=== PATIENT | male | born 1970 | race Caucasian/White ===

== ENCOUNTER 2018-11-16 12:36 | Observation (INO) | payer OTHER ==
[2018-11-16 14:34] LABS: BASO % 0.5 % (0-2.0); EOS % 2.1 % (0-4.5); HEMATOCRIT 33.7 % (35.4-49); HEMOGLOBIN 11.3 GM/dL (11.7-16.9); LYMPH % 14.9 % (8-40); MCHC 33.5 g/dl (32.0-35.9); MEAN CELL VOLUME 74.7 fl (80-96); MONO % 9.3 % (3.8-10.2); NEUT % 73.2 % (42.8-82.8); PLATELET COUNT 246 K/MM3 (134-434); RBC 4.52 M/mm3 (4.00-5.60); RDW 14.4 % (11.9-15.9); WHITE BLOOD COUNT 7.7 K/mm3 (4.0-10.0)
[2018-11-16 14:58] LABS: INR 1.05 (0.83-1.09); PROTHROMBIN TIME (PATIENT) 12.4 SEC (9.7-13.0)
[2018-11-16 15:00] LABS: ACTIVATED PTT 31.2 SECONDS (25.2-36.5)
[2018-11-16 15:02] LABS: ALBUMIN 2.8 g/dl (3.4-5.0); ALK PHOS 182 U/L (45-117); ANION GAP 8 MMOL/L (8-16); BILIRUBIN,TOTAL 0.3 mg/dL (0.2-1); BLOOD UREA NITROGEN 24 mg/dL (7-18); CALCIUM 8.3 mg/dL (8.5-10.1); CHLORIDE 99 mmol/L (98-107); CO2 28 mmol/L (21-32); CREATININE 1.9 mg/dL (0.55-1.3); N-TERMINAL BNP 457.4 pg/ml (5-125); POTASSIUM 3.4 mmol/L (3.5-5.1); SGOT/AST 25 U/L (15-37); SGPT/ALT 44 U/L (13-61); SODIUM 135 mmol/L (136-145); TOT PROT 7.2 g/dl (6.4-8.2)
--- NOTE | 2018-11-16 15:04 | PDOC ---
History of Present Illness <Gavino Travis - Last Filed: 11/16/18 15:43> - History of Present Illness Initial Comments: 11/16/18 14:57 The patient is a 48 year old male with a significant past medical history of HTN , IDDM, CHF (on lasix 80mg BID), and [place] s/p stent (on brilinta) who presents to the ED complaining of SOB, and 8/10 burning right elbow pain associated with numbness and tingling in his right pinky finger. The patient reports the SOB to be constant which started a week ago. The patient reports some chest tightness as well that is similar to when he had pneumonia last year and a productive cough of green, non bloody sputum. The patient stated he had an echo done within the past month, but the results have not come in yet. The patient states his right elbow pain began a month ago when he had fallen down the stairs. The patient states the pain is exacerbated when lifting objects. He also notes he often hears a popping coming from his right elbow and tingling in his pinky. The patient stated he applied Icy Hot, but it did not alleviate his pain. The pt receives all of his care at [facility], however his had a positive experience here prompting him to come to our ED. The patient denies chest pain, headache, weakness and dizziness. Denies fever, chills, nausea, vomit, diarrhea and constipation. Denies dysuria, frequency, urgency and hematuria. Allergies: Mushrooms, NKA Social history: No reported PCP: Dr. Mazariegos <Robert Orona - Last Filed: 11/16/18 15:48> - General Chief Complaint: Pain, Acute Stated Complaint: Sob / R arm pain Time Seen by Provider: 11/16/18 12:49 Past History <Gavino Travis - Last Filed: 11/16/18 15:43> - Past Medical History COPD: No CHF: Yes Diabetes: Yes HTN: Yes - Surgical History Cardiac Surgery: Yes (stent) Lung Surgery: No Neurologic Surgery: No - Immunization History Immunization Up to Date: No - Suicide/Smoking/Psychosocial Hx Smoking History: Never smoked Have you smoked in the past 12 months: No Information on smoking cessation initiated: No Hx Alcohol Use: No Drug/Substance Use Hx: No <Adwoa,Yoitzel - Last Filed: 11/16/18 15:48> - Past Medical History Allergies/Adverse Reactions: Allergies Allergy/AdvReac Type Severity Reaction Status Date / Time No Known Allergies Allergy Verified 11/16/18 12:49 Home Medications: Ambulatory Orders Hydralazine HCl 100 mg PO ASDIR 11/16/18 Review of Systems - Review of Systems Comments:: 11/16/18 15:04 GENERAL/CONSTITUTIONAL: No fever or chills. No weakness. HEAD, EYES, EARS, NOSE AND THROAT: No change in vision. No ear pain or discharge. No sore throat. GASTROINTESTINAL: No nausea, vomiting, diarrhea or constipation. GENITOURINARY: No dysuria, frequency, or change in urination. CARDIOVASCULAR: No chest pain or shortness of breath. RESPIRATORY:(+) productive cough w/ clear sputum. No wheezing, or hemoptysis. MUSCULOSKELETAL: (+) right elbow pain. No neck or back pain. SKIN: No rash NEUROLOGIC: (+) tingling in right pinky finger. No headache, vertigo, loss of consciousness, or change in strength. ENDOCRINE: No increased thirst. No abnormal weight change. HEMATOLOGIC/LYMPHATIC: No anemia, easy bleeding, or history of blood clots. ALLERGIC/IMMUNOLOGIC: No hives or skin allergy. <Robert Orona - Last Filed: 11/16/18 15:48> *Physical Exam - Vital Signs Last Vital Signs Temp Pulse Resp BP Pulse Ox 98.4 F 84 18 123/84 100 11/16/18 12:46 11/16/18 12:46 11/16/18 12:46 11/16/18 12:46 11/16/18 12:46 <Gavino Travis - Last Filed: 11/16/18 15:43> - Vital Signs Last Vital Signs Temp Pulse Resp BP Pulse Ox 98.4 F 84 18 123/84 100 11/16/18 12:46 11/16/18 12:46 11/16/18 12:46 11/16/18 12:46 11/16/18 12:46 - Physical Exam Comments: 11/16/18 15:04 GENERAL: Awake, alert, and fully oriented, in no acute distress HEAD: No signs of trauma EYES: PERRLA, EOMI, sclera anicteric, conjunctiva clear ENT: Auricles normal inspection, hearing grossly normal, nares patent, oropharynx clear without exudates. Moist mucosa NECK: Normal ROM, supple, no lymphadenopathy, JVD, or masses LUNGS: Breath sounds equal, clear to auscultation bilaterally. No wheezes, and no crackles HEART: Regular rate and rhythm, normal S1 and S2, no murmurs, rubs or gallops ABDOMEN: Soft, nontender, normoactive bowel sounds. No guarding, no rebound. No masses EXTREMITIES: Normal range of motion, no edema. No clubbing or cyanosis. No cords, erythema, or tenderness NEUROLOGICAL: Normal speech, cranial nerves intact, negative pronator drift, 5/ 5 strength in all 4 extremities, normal sensation to light touch in all 4 extremities, normal cerebellar exam, normal gait, normal reflexes and tone SKIN: Warm, Dry, normal turgor, no rashes or lesions noted. <Robert Orona - Last Filed: 11/16/18 15:48> Moderate Sedation - Procedure Monitoring Vital Signs: Procedure Monitoring Vital Signs Temperature 98.4 F 11/16/18 12:46 Pulse Rate 84 11/16/18 12:46 Respiratory Rate 18 11/16/18 12:46 Blood Pressure 123/84 11/16/18 12:46 O2 Sat by Pulse Oximetry (%) 100 11/16/18 12:46 <Gavino Travis - Last Filed: 11/16/18 15:43> - Procedure Monitoring Vital Signs: Procedure Monitoring Vital Signs Temperature 98.4 F 11/16/18 12:46 Pulse Rate 84 11/16/18 12:46 Respiratory Rate 18 11/16/18 12:46 Blood Pressure 123/84 11/16/18 12:46 O2 Sat by Pulse Oximetry (%) 100 11/16/18 12:46 <Robert Orona - Last Filed: 11/16/18 15:48> Heart Score/ECG Review - History History: Moderately suspicious - Electrocardiogram EKG: Non specific repolarization disturbance - Age Age: 45-65 - Risk Factors Based on the list above the patient has:: >/=3 risk factors or Hx atherosclerotic disease - Troponin Troponin: </= normal limit - Score Heart Score - Total: 5 #1 11/16/18 15:09 Twelve-lead EKG was performed and reviewed by me. Normal sinus rhythm, rate 77. Normal axis and intervals. No ST elevations. <Robert Orona - Last Filed: 11/16/18 15:48> ED Treatment Course - LABORATORY CBC & Chemistry Diagram: 11/16/18 14:16 11/16/18 14:16 - ADDITIONAL ORDERS Additional order review: Laboratory Results 11/16/18 11/16/18 11/16/18 14:16 14:16 14:16 PT with INR 12.40 INR 1.05 PTT (Actin FS) 31.2 Sodium Potassium Chloride Carbon Dioxide Anion Gap BUN Creatinine Creat Clearance w eGFR Random Glucose Calcium Magnesium 2.2 Total Bilirubin AST ALT Alkaline Phosphatase Creatine Kinase Cancelled Troponin I Cancelled Cancelled B-Natriuretic Peptide Total Protein Albumin 11/16/18 11/16/18 14:16 14:16 PT with INR INR PTT (Actin FS) Cancelled Sodium 135 L Potassium 3.4 L Chloride 99 Carbon Dioxide 28 Anion Gap 8 BUN 24 H Creatinine 1.9 H Creat Clearance w eGFR 38.02 Random Glucose 427 H* Calcium 8.3 L Magnesium Total Bilirubin 0.3 AST 25 ALT 44 Alkaline Phosphatase 182 H Creatine Kinase 132 Troponin I < 0.02 B-Natriuretic Peptide 457.4 H Total Protein 7.2 Albumin 2.8 L 11/16/18 14:16 RBC 4.52 MCV 74.7 L MCHC 33.5 RDW 14.4 MPV 8.0 Neutrophils % 73.2 Lymphocytes % 14.9 Monocytes % 9.3 Eosinophils % 2.1 Basophils % 0.5 - RADIOLOGY Radiograph Interpretation: 11/16/18 15:41 EXAM#: TYPE/EXAM: RESULT: [id number] RAD/ELBOW-RIGHT Right elbow: Pain. Fall one month ago. 3 views of the right elbow reveal some arthritic changes, old fracture of an olecranon spur but no sign of an acute process. Fat pad elevation is not seen. There are some cystic changes seen in the distal humerus by the radial margin. There is no sign of swelling, soft tissue air or foreign body. A line is seen in the anterior elbow soft tissues. Impression: Previously fractured olecranon spur. Arthritic changes. No acute pathology appreciated. If symptoms persist, further imaging and orthopedic consultation may be of help. Reported By: Westley King MD EXAM#: TYPE/EXAM: RESULT: [id number] RAD/CHEST X-RAY PORTABLE* Chest: Shortness of breath Single AP view the chest reveals clear lungs, normal mediastinum and sharp angles. The bones and soft tissues are intact. There are no prior studies for comparison. Impression: No acute chest pathology Reported By: Westley King MD - Medications Given in the ED: ED Medications Discontinued Medications Generic Name Dose Route Start Last Admin Trade Name Freq PRN Reason Stop Dose Admin Insulin Human Regular 5 units 11/16/18 15:13 11/16/18 15:37 Novolin R Vial *For Ivpush Or Iv Drip Only* SQ 11/16/18 15:14 5 units ONCE ONE Administration <Gavino Travis - Last Filed: 11/16/18 15:43> - LABORATORY CBC & Chemistry Diagram: 11/16/18 14:16 11/16/18 14:16 - ADDITIONAL ORDERS Additional order review: Laboratory Results 11/16/18 11/16/18 11/16/18 14:16 14:16 14:16 PTT (Actin FS) Cancelled Creatine Kinase Cancelled Troponin I Cancelled Cancelled 11/16/18 14:16 RBC 4.52 MCV 74.7 L MCHC 33.5 RDW 14.4 MPV 8.0 Neutrophils % 73.2 Lymphocytes % 14.9 Monocytes % 9.3 Eosinophils % 2.1 Basophils % 0.5 - RADIOLOGY Radiology Studies Ordered: Category Date Time Status CHEST X-RAY PORTABLE* [RAD] Stat Radiology 11/16/18 13:57 Completed <Robert Orona - Last Filed: 11/16/18 15:48> Medical Decision Making - Medical Decision Making 11/16/18 15:10 48yo M with multiple cardiac risk factors including CAD s/p stent, CHF, DM presents to the ED with SOB, chest tightness, as well as R elbow pain with R 5th finger tingling. Vitals wnl. Exam wnl. EKG non ischemic. With regards to SOB and chest tightness, story concerning for CHF exacerbation vs ACS vs PNA. Pt meets no PERC criteria, thus low likellihood PE. Labs with mildly elevated BNP, however pt does not appear fluid overloaded, and CXR is clear. He is also compliant with lasix, thus making CHF exac unlikely. Chest tightness occurs at rest as well as with exertion, making story concerning for possible ACS. Pt's heart score is 5. Will plan for obs admission With regards to elbow pain, pt has not had imaging of elbow since the fall, but symptoms consistent with ulnar neuropathy. Pt will need outpt orthopedic f/u. Will obtain XR of the elbow to eval for bony injury. 11/16/18 15:[address] Myers, pt accepted for admission to tele obs Case discussed in detail with admitting physician including history, physical exam and ancillary studies. Admitting physician has assumed care for the patient, will follow all pending diagnostics and will complete the evaluation and treatment. <Robert Orona - Last Filed: 11/16/18 15:48> *DC/Admit/Observation/Transfer - Attestations Scribe Attestion: 11/16/18 15:42 Documentation prepared by Gavino Travis, acting as durable medical equipment repairer for Robert Orona MD. <Gavino Travis - Last Filed: 11/16/18 15:43> - Discharge Dispostion Decision to Admit order: Yes - Attestations Physician Attestion: 11/16/18 15:48 I, Dr. Robert Orona MD, attest that this document has been prepared under my direction and personally reviewed by me in its entirety. I further attest, that it accurately reflects all work, treatment, procedures and medical decision -making performed by me. <Robert Orona - Last Filed: 11/16/18 15:48> Diagnosis at time of Disposition: Chest tightness, SOB (shortness of breath), Ulnar neuropathy - Discharge Dispostion Condition at time of disposition: Stable - Referrals Referrals: Louis Mazariegso [Primary Care Provider] - - Patient Instructions - Post Discharge Activity Forms/Work/School Notes: Back to Work
[2018-11-16 15:05] LABS: GLUCOSE,RANDOM 427 mg/dL (74-106)
[2018-11-16] MEDS ORDERED: INSULIN REGULAR HUMAN 100 UNITS/ML *VIAL SQ ONE (15:13)
[2018-11-16] MEDS ORDERED: INSULIN REGULAR HUMAN 100 UNITS/ML *VIAL ONE (15:23)
--- NOTE | 2018-11-16 16:09 | HP ---
PCP: Louis Mazariegos CHIEF COMPLAINT: Shortness of breath HISTORY OF PRESENT ILLNESS: This is a 48 year old man who comes to the ED complaining of shortness of breath x 2-3 days. He has a cough productive of yellow sputum, nasal congestion, and chest tightness. He denies fever, chills, palpitations, weight gain, leg edema, urinary frequency, nocturia, orthopnea, PND. He also reports pain in his right elbow with numbness of his right 5th finger x 1 month. About 1 1/2 months ago, he fell down a flight of stairs and thinks he injured the elbow then. PAST MEDICAL HISTORY: Hypertension CAD MD CHF Type 2 DM PAST SURGICAL HISTORY: Cardiac stent Right foot surgery secondary to fractures x 2 Bilateral eye surgeries secondary to complications of diabetes Allergies No Known Allergies Allergy (Verified 11/16/18 12:49) Mushrooms Home Medications Medication Instructions Recorded Hydralazine HCl 100 mg PO ASDIR 11/16/18 Social History: Smoking: Never smoked Alcohol: Denies Drugs: Denies Family History: Non-contributory Recent Travel: None REVIEW OF SYSTEMS CONSTITUTIONAL: Absent: fever, chills, diaphoresis, generalized weakness, malaise, loss of appetite, weight change HEENT: Present: nasal congestion. Absent: rhinorrhea, throat pain, throat swelling, difficulty swallowing, mouth swelling, ear pain, eye pain, visual changes CARDIOVASCULAR: Absent: chest pain, syncope, palpitations, lightheadedness, peripheral edema RESPIRATORY: Present: cough, shortness of breath. Absent: orthopnea, wheezing, stridor, hemoptysis GASTROINTESTINAL: Absent: abdominal pain, abdominal distension, nausea, vomiting , diarrhea, constipation, melena, hematochezia GENITOURINARY: Absent: dysuria, frequency, urgency, hesitancy, hematuria, flank pain MUSCULOSKELETAL: Present: right elbow pain. Absent: myalgia, joint swelling, back pain, neck pain SKIN: Absent: rash, itching, pallor HEMATOLOGIC/IMMUNOLOGIC: Absent: easy bleeding, easy bruising, lymphadenopathy, frequent infections ENDOCRINE: Absent: unexplained weight gain, unexplained weight loss, heat intolerance, cold intolerance NEUROLOGIC: Present: right 5th finger numbness. Absent: headache, focal weakness, dizziness, unsteady gait, seizure, mental status changes, bladder or bowel incontinence PSYCHIATRIC: Absent: anxiety, depression, suicidal or homicidal ideation, hallucinations. PHYSICAL EXAMINATION Vital Signs - 24 hr 01/27/19 12:46 Temperature 98.4 F Pulse Rate 84 Respiratory 18 Rate Blood Pressure 123/84 O2 Sat by Pulse 100 Oximetry (%) GENERAL: Awake, alert, and fully oriented, in no acute distress. HEAD: Normal with no signs of trauma. EYES: Pupils equal, round and reactive to light, extraocular movements intact, sclerae anicteric, conjunctivae clear. EARS, NOSE, THROAT: Ears normal, nares patent, oropharynx clear without exudates. Moist mucous membranes. NECK: Normal range of motion, supple without lymphadenopathy, JVD, or masses. LUNGS: Breath sounds equal, clear to auscultation bilaterally. No wheezes, and no crackles. No accessory muscle use. HEART: Regular rate and rhythm, normal S1 and S2 without murmur, rub or gallop. ABDOMEN: Obese, soft, nontender, not distended, normoactive bowel sounds, no guarding, no rebound, no masses. No hepatomegaly or splenomegaly. MUSCULOSKELETAL: Normal range of motion at all joints. No bony deformities or tenderness. No CVA tenderness. UPPER EXTREMITIES: 2+ pulses, warm, well-perfused. No cyanosis. No clubbing. No peripheral edema. LOWER EXTREMITIES: 2+ pulses, warm, well-perfused. No calf tenderness. No peripheral edema. NEUROLOGICAL: Cranial nerves II-XII intact. Normal speech. Strength 5/5 in all extremities, proximal and distal. Sensation intact. Gait not observed. PSYCHIATRIC: Cooperative. Good eye contact. Appropriate mood and affect. SKIN: Warm, dry, normal turgor, no rashes or lesions noted, normal capillary refill. Laboratory Results - last 24 hr 11/16/18 11/16/18 11/16/18 14:16 14:16 14:16 WBC 7.7 RBC 4.52 Hgb 11.3 L Hct 33.7 L MCV 74.7 L MCH 25.0 L MCHC 33.5 RDW 14.4 Plt Count 246 MPV 8.0 Absolute Neuts (auto) 5.7 Neutrophils % 73.2 Lymphocytes % 14.9 Monocytes % 9.3 Eosinophils % 2.1 Basophils % 0.5 Nucleated RBC % 0 PT with INR INR PTT (Actin FS) Cancelled Sodium 135 L Potassium 3.4 L Chloride 99 Carbon Dioxide 28 Anion Gap 8 BUN 24 H Creatinine 1.9 H Creat Clearance w eGFR 38.02 Random Glucose 427 H* Calcium 8.3 L Magnesium Total Bilirubin 0.3 AST 25 ALT 44 Alkaline Phosphatase 182 H Creatine Kinase 132 Troponin I < 0.02 B-Natriuretic Peptide 457.4 H Total Protein 7.2 Albumin 2.8 L 11/16/18 11/16/18 11/16/18 14:16 14:16 14:16 WBC RBC Hgb Hct MCV MCH MCHC RDW Plt Count MPV Absolute Neuts (auto) Neutrophils % Lymphocytes % Monocytes % Eosinophils % Basophils % Nucleated RBC % PT with INR 12.40 INR 1.05 PTT (Actin FS) 31.2 Sodium Potassium Chloride Carbon Dioxide Anion Gap BUN Creatinine Creat Clearance w eGFR Random Glucose Calcium Magnesium 2.2 Total Bilirubin AST ALT Alkaline Phosphatase Creatine Kinase Cancelled Troponin I Cancelled Cancelled B-Natriuretic Peptide Total Protein Albumin Chest x-ray: No acute process X-rays right elbow: Old olecranon spur fracture ASSESSMENT/PLAN: This is a 48 year old man with a history of HTN, CAD, MD, cardiac stent, CHF, type 2 DM who presented to the ED with shortness of breath, cough productive of yellow sputum, nasal congestion, and chest tightness. 1. Shortness of breath - Does not appear to be cardiac in origin, and is likely secondary to URI - Observe on telemetry - Serial troponins - Repeat EKG in AM 2. Olecranon spur fracture - Appears old on x-ray - Outpatient ortho follow up 3. Hypertension - Continue Lasix - Patient is unsure of other meds 4. CAD, history of MD and stent - Continue Brilinta, aspirin - Patient is unsure of other meds 5. CHF - Chronic, unsure if systolic or diastolic - No evidence of acute heart failure at this time - Continue Lasix 6. Type 2 DM - Fingersticks with Novolog sliding scale
[2018-11-16] MEDS ORDERED: ACETAMINOPHEN 325 MG TABLET (FP) PO PRN (16:10)
[2018-11-16] MEDS ORDERED: ALBUTEROL SO4 0.083% IH SOL 2.5 MG/3 ML VIAL.NEB. NEB PRN (16:10)
[2018-11-16] MEDS ORDERED: POTASSIUM CHLORIDE TABS 20 MEQ TABLET.ER (FP) PO ONE ×2 (16:18→16:33)
[2018-11-16] MEDS ORDERED: INSULIN (NOVOLOG) ASPART 100 UNITS/ML 10ML VIAL ONE ×2 (16:36→22:43)
[2018-11-16] MEDS: INSULIN SLIDING SCALE (NOVOLOG) 1 VIAL SQ SCH ×2 (16:42→22:45)
[2018-11-16] MEDS ORDERED: TICAGRELOR 90 MG TABLET PO ONE (22:29)
[2018-11-16] MEDS: TICAGRELOR 90 MG TABLET PO SCH (22:32)
[2018-11-17 04:16] VITALS: BMI 34.7
[2018-11-17] MEDS: FUROSEMIDE 40 MG TABLET (FP) PO SCH ×2 (06:24→15:52)
[2018-11-17] MEDS: INSULIN SLIDING SCALE (NOVOLOG) 1 VIAL SQ SCH ×3 (06:25→17:22)
[2018-11-17 06:44] LABS: BASO % 0.4 % (0-2.0); EOS % 2.1 % (0-4.5); HEMOGLOBIN 10.2 GM/dL (11.7-16.9); LYMPH % 20.7 % (8-40); MCH 25.1 pg (25.7-33.7); MCHC 33.9 g/dl (32.0-35.9); MEAN CELL VOLUME 74.1 fl (80-96); MONO % 10.7 % (3.8-10.2); NEUT % 66.1 % (42.8-82.8); PLATELET COUNT 240 K/MM3 (134-434); RBC 4.05 M/mm3 (4.00-5.60); RDW 14.7 % (11.9-15.9); WHITE BLOOD COUNT 8.6 K/mm3 (4.0-10.0)
[2018-11-17 07:24] LABS: ANION GAP 9 MMOL/L (8-16); BLOOD UREA NITROGEN 28 mg/dL (7-18); CALCIUM 8.2 mg/dL (8.5-10.1); CHLORIDE 98 mmol/L (98-107); CO2 26 mmol/L (21-32); POTASSIUM 3.8 mmol/L (3.5-5.1); SODIUM 133 mmol/L (136-145)
--- NOTE | 2018-11-17 08:33 | PN ---
Teaching Attending Note Name of Resident: Fabian Moulton ATTENDING PHYSICIAN STATEMENT I saw and evaluated the patient. I reviewed the resident's note and discussed the case with the resident. I agree with the resident's findings and plan as documented. SUBJECTIVE: C/O Mild Cough and Rt elbow pain and burning densation Rt Vth Finger OBJECTIVE: Vital Signs Period Temp Pulse Resp BP Sys/Klein Pulse Ox Last 24 Hr 98.2 F-98.8 F 77-84 12-18 123-176/72-91 97-100 Middle aged man comfortable not in distress HEENT: Mm moist, no anemia, PERRLA EOMI NECK: No JVD No Bruit CHEST; CTA B/L CVS:S1S2 R no m/g/r ABD: Obese, non tender Bs + EXT: Rt Elbow mild tenderness at ulner tunnel CHISELER HEAD: AOX3 non focal ASSESSMENT AND PLAN:48 year old man with a history of HTN, CAD, [place], cardiac stent, CHF, type 2 DM who presented to the ED with shortness of breath, cough productive of yellow sputum, nasal congestion, present with Rt elbow pain s/p fall Impression; Rt ulner N entrapement syndrome , after sustaining a fall 1 month ago no active issue, agrees with Ortho recommendation, needs EMG add Gabapentin 100 mg at bed time, rest cont all home med. F/U ortho as out patient. Resume all home meds , needs optimization of Glycemic control, viral URTI no indication for abx as patient is afebrile, TWBC normal, CXR is un remarkable. CKD stage 3 no base line creat available, plaese call PMD to get more information. Discussed with the team. Problem List - Problems (1) Ulnar neuropathy Assessment/Plan: Due to trauma add Gabapentin , EMG and hand surgery/ortho f/U as out patient Code(s): G56.20 - LESION OF ULNAR NERVE, UNSPECIFIED UPPER LIMB Qualifiers: Laterality: right Qualified Code(s): G56.21 - Lesion of ulnar nerve, right upper limb (2) T2DM (type 2 diabetes mellitus) Assessment/Plan: Uncontrolled, resume home meds , optimoize Glycemic control Code(s): E11.9 - TYPE 2 DIABETES MELLITUS WITHOUT COMPLICATIONS (3) RTI (respiratory tract infection) Assessment/Plan: Most likely viral obsere consider PO Z pack if spikes fever TWBC normal, CXR no infiltrates Code(s): J98.8 - OTHER SPECIFIED RESPIRATORY DISORDERS (4) CAD (coronary artery disease) Assessment/Plan: s/p stent asymptomatic resume home meds Code(s): I25.10 - ATHSCL HEART DISEASE OF [place] CORONARY ARTERY W/O ANG PCTRS (5) HTN (hypertension) Assessment/Plan: Resume home meds Code(s): I10 - ESSENTIAL (PRIMARY) HYPERTENSION (6) CKD (chronic kidney disease) stage 3, GFR 30-59 ml/min Assessment/Plan: Call PMD to get base line F/U Recreation Assistant Code(s): N18.3 - CHRONIC KIDNEY DISEASE, STAGE 3 (MODERATE) (7) Obesity (BMI 30-39.9) Assessment/Plan: Nutrition consult as out patient. Code(s): E66.9 - OBESITY, UNSPECIFIED
--- NOTE | 2018-11-17 08:46 | CON.ORTH ---
Consult Reason for Consultation:: right elbow pain/numbness - Alcohol/Substance Use Hx Alcohol Use: No - Smoking History Smoking history: Never smoked Have you smoked in the past 12 months: No Aproximately how many cigarettes per day: 0 Home Medications - Allergies Allergies/Adverse Reactions: Allergies Allergy/AdvReac Type Severity Reaction Status Date / Time No Known Allergies Allergy Verified 11/16/18 12:49 - Home Medications Home Medications: Ambulatory Orders Hydralazine HCl 100 mg PO ASDIR 11/16/18 Physical Exam for Ortho Vital Signs: Vital Signs Temperature 98.8 F 11/17/18 04:20 Pulse Rate 81 11/17/18 04:20 Respiratory Rate 18 11/17/18 06:00 Blood Pressure 150/88 11/17/18 04:20 O2 Sat by Pulse Oximetry (%) 98 11/17/18 06:00 Labs: CBC, BMP 11/17/18 05:30 11/17/18 05:30 INR, PTT INR 1.05 (0.83-1.09) 11/16/18 14:16 - Upper Extremity Elbow: Yes: Right, Tenderness, Other (+ttp over lateral epi, neg tinels, full rom, + numbness in 5th finger) Imaging - Results X-ray: Report Reviewed, Image Reviewed Assessment/Plan 48 year old man who comes to the ED complaining of shortness of breath x 2-3 days. He has a cough productive of yellow sputum, nasal congestion, and chest tightness. He denies fever, chills, palpitations, weight gain, leg edema, urinary frequency, nocturia, orthopnea, PND. He also reports pain in his right elbow with numbness of his right 5th finger x 1 month. About 1 1/2 months ago, he fell down a flight of stairs and thinks he injured the elbow then. a/p right cubital tunnel syndrome, old olecranon spur fx d/w with pt in detail Orthopedically stable NTD during hospital admission will need EMGs and possible ulna nerve transposition as outpt d/w Dr. Meraz
[2018-11-17 09:50] LABS: GLUCOSE,RANDOM 355 mg/dL (74-106)
[2018-11-17] MEDS: TICAGRELOR 90 MG TABLET PO SCH (10:00)
[2018-11-17] MEDS ORDERED: ASPIRIN 81 MG CHEWABLE TABLETS PO SCH (10:00)
--- NOTE | 2018-11-17 10:45 | EKG ---
Test Reason : Blood Pressure : / mmHG Vent. Rate : 080 BPM Atrial Rate : 080 BPM P-R Int : 184 ms QRS Dur : 096 ms QT Int : 418 ms P-R-T Axes : 032 -09 -15 degrees QTc Int : 482 ms NORMAL SINUS RHYTHM MODERATE VOLTAGE CRITERIA FOR LVH, MAY BE NORMAL VARIANT PROLONGED QT ABNORMAL ECG WHEN COMPARED WITH ECG OF 16-NOV-2018 14:06, NO SIGNIFICANT CHANGE WAS FOUND Confirmed by NICOLE PAYNE, SILVIA ([id number]) on 11/17/2018 10:45:20 AM Referred By: MARITA VALENCIA DR Confirmed By:SILVIA RIVERA MD
--- NOTE | 2018-11-17 10:57 | EKG ---
Test Reason : Blood Pressure : / mmHG Vent. Rate : 077 BPM Atrial Rate : 077 BPM P-R Int : 174 ms QRS Dur : 096 ms QT Int : 420 ms P-R-T Axes : 041 000 -08 degrees QTc Int : 475 ms NORMAL SINUS RHYTHM MODERATE VOLTAGE CRITERIA FOR LVH, MAY BE NORMAL VARIANT BORDERLINE ECG NO PREVIOUS ECGS AVAILABLE Confirmed by SILVIA RIVERA MD ([id number]) on 11/17/2018 10:57:32 AM Referred By: Confirmed By:SILVIA RIVERA MD
[2018-11-17 14:28] VITALS: BP 143/74; PULSE 85; TEMP 98.6
--- NOTE | 2018-11-17 15:15 | DS ---
Physical Exam: SUBJECTIVE: Patient seen and examined at bedside this morning. He does not endorse any acute complaints today. OBJECTIVE: Vital Signs Period Temp Pulse Resp BP Sys/Klein Pulse Ox Last 24 Hr 98.2 F-98.8 F 77-85 12-18 126-176/72-91 97-100 PHYSICAL EXAM GENERAL: The patient is awake, alert, and fully oriented, in no acute distress. HEAD: Normocephalic, atraumatic. EYES: PERRL, extraocular movements intact, sclera anicteric. ENT: Ooropharynx clear without exudates, moist mucous membranes. NECK: Supple without lymphadenopathy LUNGS: Breath sounds equal, clear to auscultation bilaterally. No wheezes, no crackles. No accessory muscle use. HEART: Regular rate and rhythm, S1, S2 without murmur, rub or gallop. ABDOMEN: Obese. Soft, nontender, nondistended. Normoactive bowel sounds X4 quadrants. No guarding, no rebound tenderness. EXTREMITIES: 2+ pulses, warm, well-perfused, no edema. NEUROLOGICAL: Cranial nerves II through XII grossly intact. Normal speech, and gait. PSYCH: Normal mood, normal affect upon my encounter. SKIN: Warm, dry. LABS Laboratory Results - last 24 hr 11/16/18 11/16/18 11/16/18 16:34 19:20 22:38 WBC RBC Hgb Hct MCV MCH MCHC RDW Plt Count MPV Absolute Neuts (auto) Neutrophils % Lymphocytes % Monocytes % Eosinophils % Basophils % Nucleated RBC % Sodium Potassium Chloride Carbon Dioxide Anion Gap BUN Creatinine Creat Clearance w eGFR POC Glucometer [phone] Random Glucose Calcium Creatine Kinase 133 Troponin I < 0.02 11/17/18 11/17/18 11/17/18 01:30 05:27 05:30 WBC 8.6 RBC 4.05 Hgb 10.2 L Hct 30.0 L MCV 74.1 L MCH 25.1 L MCHC 33.9 RDW 14.7 Plt Count 240 MPV 8.0 Absolute Neuts (auto) 5.7 Neutrophils % 66.1 Lymphocytes % 20.7 D Monocytes % 10.7 H Eosinophils % 2.1 Basophils % 0.4 Nucleated RBC % 0 Sodium Potassium Chloride Carbon Dioxide Anion Gap BUN Creatinine Creat Clearance w eGFR POC Glucometer 330 Random Glucose Calcium Creatine Kinase 116 Troponin I < 0.02 11/17/18 11/17/18 05:30 05:30 WBC RBC Hgb Hct MCV MCH MCHC RDW Plt Count MPV Absolute Neuts (auto) Neutrophils % Lymphocytes % Monocytes % Eosinophils % Basophils % Nucleated RBC % Sodium 133 L Potassium 3.8 Chloride 98 Carbon Dioxide 26 Anion Gap 9 BUN 28 H Creatinine 2.0 H Creat Clearance w eGFR 35.84 POC Glucometer Random Glucose 355 H* Calcium 8.2 L Creatine Kinase 111 Troponin I < 0.02 HOSPITAL COURSE: Date of Admission:11/16/18 Date of Discharge: 11/17/18 Patient is a 48 year old male with history of hypertension, myocardial infarction, coronary artery disease s/p stent, congestive heart failure, diabetes mellitus, presented with cough and shortness of breath. Chest xray showed no acute chest pathology. EKG showed normal sinus rhythm, LVH at 80 BPM. Patient also complained of right arm pain, and numbness. Xray of right elbow showed old previously fractured olecranon spur, arthritic changes without acute pathology. He was evaluated by orthopedic surgery who discussed outpatient follow up. Patient's blood sugars remained elevated despite insulin administration, however patient did not want to stay in the hospital and signed out against medical advice. Risks were explained to patient with attending physician, and patient verbally expressed understanding. Instructed to remain hydrated, continue home fingerstick blood glucose monitoring, continue home medications as directed, and discussed importance of outpatient follow up with primary care physician. Minutes to complete discharge: 35 Discharge Summary Reason For Visit: SHORTNESS OF BREATH,ULNAR NEUROPATHY,SENSATION OF Current Active Problems CAD (coronary artery disease) (Acute) CKD (chronic kidney disease) stage 3, GFR 30-59 ml/min (Acute) Chest tightness (Acute) HTN (hypertension) (Acute) Obesity (BMI 30-39.9) (Acute) RTI (respiratory tract infection) (Acute) SOB (shortness of breath) (Acute) T2DM (type 2 diabetes mellitus) (Acute) Ulnar neuropathy (Acute) Condition: Stable - Instructions Diet, Activity, Other Instructions: You were admitted to the hospital due to cough, with shortness of breath, and right elbow pain You were evaluated by the orthopedic surgeon and are for discharge home. You will continue taking your home medications as directed Begin taking new medication: Neurontin 100mg in the evening for elbow pain. Discuss this new medication with your primary care physician at your appointment. Make sure to check your fingerstick blood sugars daily. Record your readings and bring with you to your primary care physician appointment. Follow up with your primary care physician within two- three days after discharge. Follow up with orthopedic surgeon Dr. Meraz within one week after discharge. Return to the nearest emergency department if you experience any worsening symptoms, fevers, chills, shortness of breath, chest pain, palpitations, abdominal pain, nausea, vomiting. Referrals: Louis Mazariegos [Primary Care Provider] - Jose Meraz MD [Staff Physician] - Disposition: AGAINST MEDICAL ADVICE - Home Medications Comprehensive Discharge Medication List: Ambulatory Orders Hydralazine HCl 100 mg PO BID 11/16/18 Amlodipine Besylate [Norvasc -] 10 mg PO DAILY 11/17/18 Furosemide [Lasix] 80 mg PO DAILY 11/17/18 Gabapentin 100 mg PO HS 28 Days #28 capsule 11/17/18 Insulin Aspart [Novolog] 20 unit SQ TID 11/17/18 Insulin Glargine,Hum.rec.anlog [Basaglar Kwikpen U-100] 60 unit SQ DAILY Metoprolol Succinate 200 mg PO DAILY 11/17/18 Rosuvastatin [Crestor -] 40 mg PO DAILY 11/17/18 Ticagrelor [Brilinta -] 90 mg PO BID 11/17/18 This patient is new to me today: Yes Date on this admission: 11/17/18 Emergency Visit: Yes ED Registration Date: 11/16/18 Care time: The patient presented to the Emergency Department on the above date and was hospitalized for further evaluation of their emergent condition. Critical Care patient: No - Discharge Referral Referred to [facility] No
[2018-11-17] MEDS ORDERED: INSULIN (NOVOLOG) ASPART 100 UNITS/ML 10ML VIAL SQ ONE ×2 (15:35→15:44)
[2018-11-17] MEDS ORDERED: amLODIPine BESYLATE 10 MG TABLET (FP) PO SCH (17:15)
== END 2018-11-17 18:47 | disposition left against medical advice (07) ==
LOC: JER 12:36 → JERFT 12:36 → JERBED 15:49 → J4W 11-17 03:35
PROVIDERS: ADMIT Internal Medicine; ATTEND Internal Medicine
PROC: 3E013VG Introduction of Insulin into Subcutaneous Tissue, Percutaneous Approach (ICD-10-PCS; principal; 2018-11-16)
DX: R07.89 Other chest pain (principal); R06.02 Shortness of breath; J98.8 Other specified respiratory disorders; G56.21 Lesion of ulnar nerve, right upper limb; E11.22 Type 2 diabetes mellitus with diabetic chronic kidney disease; I12.9 Hypertensive chronic kidney disease with stage 1 through stage 4 chronic kidney disease, or unspecified chronic kidney disease; N18.3 Chronic kidney disease, stage 3 (moderate); I11.0 Hypertensive heart disease with heart failure; I50.9 Heart failure, unspecified; I25.10 Atherosclerotic heart disease of native coronary artery without angina pectoris; I25.2 Old myocardial infarction; E11.9 Type 2 diabetes mellitus without complications; Z79.4 Long term (current) use of insulin; Z95.5 Presence of coronary angioplasty implant and graft; E66.9 Obesity, unspecified; Z68.34 Body mass index [BMI] 34.0-34.9, adult
CPT/HCPCS: 36415; 71045-TC-FY; 73070-TC-RT-FY; 80048; 80053; 82550; 82962; 83735; 83880; 84484; 85025; 85610; 85730; 93005; 93010; 96372; 99283-25; G0378